=== PATIENT | female | born 1970 | race Caucasian/White ===

== ENCOUNTER → 2017-04-01 | Outpatient (CLI) | payer MEDICARE, MEDICAID ==
[~2017-04-01] MED LIST: ALBUTEROL-200 PUFFS/ IH; ASPIRIN 325MG325 MG PO; CELEXA40 MG PO; CRESTOR20 MG PO; ENDUR-ACIN500 MG PO; ETODOLAC400 MG PO; FISH OIL1000 MG PO; FOLIC ACID 1MG T1 MG PO; GABAPENTIN100 M1 PO; HEARTBURN TREAT15 MG PO; HYDROXYCHLOROQ200 M1 PO; ISOSORBIDE MONO30 MG PO; LEVEMIR100 U/ML SC; LISINOPRIL HCTZ1 TAB PO; METHOTREXATE 22.5 MG SC; METOPROLOL 25 M25 MG PO; NOVOLOG MIX 70/10 M1 SC; PROTONIX 40MG T40 MG PO; SPIRIVA18 MCG IH; SULFAZINE EC500 MG PO; VENTOLIN H0.09 MG/AC IH; VITAMIN D5000 UNIT PO
[2017-04-01 11:06] LABS: HEMOGLOBIN 14.9 g/dL (12.2-16.2); LYMPH # 2.2 K/mm3 (0.7-4.5); LYMPH % 27.4 % (10-50.0)
[2017-04-01 12:46] LABS: BUN 14 mg/dL (7-18)
[2017-04-01 12:47] LABS: GFR (ESTIMATED) 78 ML/MIN (59-)
== END ==
LOC: LAB 10:50
PROVIDERS: Internal Medicine Cardiovascular Disease
DX: I25.10 Atherosclerotic heart disease of native coronary artery without angina pectoris (principal); R94.39 Abnormal result of other cardiovascular function study